=== PATIENT | female | born 1990 | race Caucasian/White ===

== ENCOUNTER 2018-01-09 10:24 | Inpatient (IN) | payer BC, OTHER ==
[2018-01-09] MEDS ORDERED: METHYLERGONOVINE 0.2 MG/ML 1 ML AMP IM PRN (12:17)
[2018-01-09] MEDS ORDERED: BUTORPHANOL 1 MG/ML 1 ML VIAL IV PRN (12:17)
[2018-01-09] MEDS ORDERED: LIDOCAINE 1% (PF) 10 MG/ML (30 ML SDV) SQ PRN (12:17)
[2018-01-09] MEDS ORDERED: TERBUTALINE 1 MG/ML VIAL SQ PRN (12:17)
[2018-01-09] MEDS ORDERED: CARBOPROST TROMETHAMINE 250 MCG/ML 1 ML AMP IM PRN (12:17)
[2018-01-09] MEDS ORDERED: OXYTOCIN 10 UNIT/ML 1 ML VIAL IM PRN (12:17)
[2018-01-09] MEDS: LACTATED RINGERS 1,000 ML IV SCH ×3 (12:30→19:27)
[2018-01-09] MEDS ORDERED: OXYTOCIN 20 UNITS/1000 ML NS 1,000 ML IV SCH ×2 (12:30→22:15)
[2018-01-09 12:45] LABS: Basophils % (A) 0 %; Eosinophils # (A) 0.2 k/uL (0-0.7); Eosinophils % (A) 2 %; HCT 35.1 % (34.0-46.0); HGB 11.5 gm/dL (11.4-16.0); Lymphocytes # (A) 1.3 k/uL (1.0-4.8); Lymphocytes % (A) 14 %; MCH 27.8 pg (25.0-35.0); MCHC 32.8 g/dL (31.0-37.0); MCV 84.7 fL (80.0-100.0); Mean Platelet Volume 7.3; Monocytes # (A) 0.3 k/uL (0-1.0); Monocytes % (A) 3 %; Neutrophils # (A) 7.2 k/uL (1.3-7.7); Neutrophils % (A) 80 %; Platelet Count 254 k/uL (150-450); RBC 4.15 m/uL (3.80-5.40); RDW 13.8 % (11.5-15.5); WBC 9.1 k/uL (3.8-10.6)
--- NOTE | 2018-01-09 13:11 | P.HPOB ---
History of Present Illness H&P Date: 01/09/18 The patient is a 27-year-old 1 para 0 admitted at 39-2/7 weeks as established by last menstrual period and confirmed by 10 week ultrasound. She is admitted in early active labor with all signs reassuring having made progress from 3 cm of dilation to 4 cm of dilation over the course of 1-2 hours. Her has been entirely uncomplicated and group B strep status is negative. Obstetrical history: 1 para 0 with current statistics as listed above. EDC of 01/15/2018 was established by last menstrual period and confirmed by 10 week ultrasound. Laboratory workup demonstrated blood type of A + with a negative antibody screen. Rubella status is immune. The remainder of laboratory workup was within normal limits. One hour Glucola is normal and group B strep status is negative. Gynecologic history: Unremarkable with no history of any infections to include STDs. Review of Systems Review of systems is confined to history of present illness. Past Medical History Past Medical History: No Reported History History of Any Multi-Drug Resistant Organisms: MRSA Date of last positivie culture/infection: 2013 MDRO Source:: upper lip Past Surgical History: No Surgical Hx Reported Past Anesthesia/Blood Transfusion Reactions: No Reported Reaction Past Psychological History: Anxiety, Depression Smoking Status: Former smoker Past Alcohol Use History: Occasional Past Drug Use History: None Reported - Past Family History Mother Family Medical History: No Reported History Medications and Allergies Home Medications Medication Instructions Recorded Confirmed Type Pnv,Calcium 72/Iron/Folic Acid 1 each PO DAILY 01/09/18 01/09/18 History [ Plus Tablet] Allergies Allergy/AdvReac Type Severity Reaction Status Date / Time No Known Allergies Allergy Verified 01/09/18 10:34 Exam Vital Signs Temp Pulse Resp BP 01/09/18 12:16 97.0 F L 82 16 108/56 01/09/18 12:05 97.0 F L 82 16 108/56 Intake and Output 01/08/18 01/09/18 01/09/18 22:59 06:59 14:59 Other: Weight 85.275 kg In general, this is a well-developed, well-nourished white female in no acute distress. Her heart has a regular rhythm and rate without murmur. Her lungs are clear to auscultation bilaterally in all [place]. Her abdomen is gravid, nondistended, has normal active bowel sounds, is soft, nontender, and without any palpable masses aside from uterine fundus. Her extremities are without any cyanosis, clubbing, or edema and are nontender to palpation bilaterally. Digital cervical examination on straights her cervix to be 4-5 cm dilated, 90% effaced, the vertex in presentation at -1-2 station. Artificial rupture of membranes is carried out demonstrating moderately meconium-stained fluid. Results Result Diagrams: 01/09/18 12:25 Assessment and Plan (1) Active labor at term Current Visit: Yes Status: Acute Code(s): XTZ5784 - SNOMED Code(s): 47264300 Plan: The patient will have close maternal and surveillance and expectant management will be practiced. She is a good candidate for either IV or epidural anesthesia if she so chooses. She is requesting as much nonintervention as possible.
[2018-01-09] MEDS ORDERED: ROPIVACAINE 100 MG, fentaNYL (PF) 200 MCG in SODIUM CHLORIDE 0.9% 76 ML EPIDURAL ONE (19:13)
[2018-01-09] MEDS ORDERED: CITRIC ACID-SODIUM CITRATE 15 ML CUP PO ONE (21:15)
[2018-01-09] MEDS ORDERED: ONDANSETRON 4 MG/2 ML VIAL ONE (21:26)
[2018-01-09] MEDS ORDERED: KETOROLAC 30 MG/ML 1 ML VIAL ONE (21:26)
[2018-01-09] MEDS ORDERED: MORPHINE SULFATE (PF) 0.3 MG/0.3 ML SYR ONE (21:26)
[2018-01-09] MEDS ORDERED: CHLOROPROCAINE 3% 30 MG/ML 20 ML VIAL ONE (21:26)
[2018-01-09] MEDS ORDERED: ceFAZolin IN SWFI 2 GM/20 ML SYRINGE IVP ONE (21:30)
[2018-01-09] MEDS ORDERED: NALOXONE 0.4 MG/ML 1 ML VIAL IV PRN ×2 (21:46→22:07)
[2018-01-09] MEDS ORDERED: MORPHINE SULFATE 4 MG/ML SYRINGE IVP PRN (21:46)
[2018-01-09] MEDS ORDERED: ONDANSETRON 4 MG/2 ML VIAL IVP PRN ×2 (21:46→22:07)
[2018-01-09] MEDS ORDERED: diphenhydrAMINE 50 MG/ML 1 ML VIAL IVP PRN ×3 (21:46→22:07)
[2018-01-09] MEDS ORDERED: ACETAMINOPHEN TAB 325 MG TAB PO PRN (22:07)
[2018-01-09] MEDS ORDERED: diphenhydrAMINE 25 MG CAP PO PRN (22:07)
[2018-01-09] MEDS ORDERED: METOCLOPRAMIDE 5 MG/ML 2 ML VIAL IVP PRN (22:07)
[2018-01-09] MEDS ORDERED: LANOLIN CREAM 5 GM TUBE TOPICAL PRN (22:07)
[2018-01-09] MEDS ORDERED: ZOLPIDEM 5 MG TAB PO PRN (22:07)
[2018-01-09] MEDS ORDERED: diphenhydrAMINE 50 MG CAP PO PRN (22:07)
[2018-01-09] MEDS ORDERED: ACETAMINOPHEN IV (For NPO) 1,000 MG in EMPTY BAG 1 BAG IVPB ONE (22:07)
--- NOTE | 2018-01-09 22:13 | P.OP ---
Date of Procedure: 01/09/18 Preoperative Diagnosis: IUP at 39-0/7 weeks, arrest of first stage of labor, meconium-stained fluid Postoperative Diagnosis: Same Procedure(s) Performed: Primary low transverse section Anesthesia: epidural Surgeon: Giana Abdullahi Bulk Cooler Installer #1: Peter Bonner Estimated Blood Loss (ml): 500 IV fluids (ml): 800 Urine output (ml): 300 Pathology: other (Placenta) Condition: stable Disposition: observation Indications for Procedure: Arrest of first stage of labor, meconium-stained fluid, category 2 heart tones Operative Findings: Normal uterus tubes and ovaries were appreciated Description of Procedure: The patient was prepped and draped in the usual fashion after epidural anesthesia was administered by anesthesia. A Pfannenstiel incision was made and extended of the abdominal cavity without difficulty. The bladder peritoneum was elevated and incised and reflected distally. A 2 cm incision was made in the transverse plane of the lower uterine segment to enter the uterus at which time clear fluid was noted. The incision was extended in both directions using the bandage scissors. The head was encountered within the field and delivered up and through the incision where the nose and mouth were thoroughly suctioned. Remainder of the was delivered onto the surgical field where the cord was doubly clamped, cut, and the was passed for resuscitative measures with weight and Apgars as noted above. A segment of cord was then doubly clamped, cut, and set aside should cord gases become necessary. The placenta was delivered manually, intact, and was grossly normal with a grossly normal three-vessel cord. The uterus was exteriorized and the interior cavity of the uterus swept of any remaining placental and membranous fragments with a laparotomy sponge. The margins of the incision were grasped with Bhat clamps and the incision closed in 2 layers. First layer was a running locking layer of 0 vicryl from margin to margin followed by a second layer of imbricating 0 vicryl from margin to margin. Any small points of bleeding were then made hemostatic with the Bovie. Once hemostasis was achieved, the posterior cul-de-sac was suctioned with a guard and the uterine and ovarian findings are as noted above. The uterus was replaced within the abdominal cavity and the gutters swept of any remaining blood fluid or clot. The incision was again reexamined and hemostasis was noted to be excellent. Any small point of bleeding were made hemostatic with the Bovie. Once hemostasis was achieved the parietal peritoneum was loosely reapproximated. The layer of muscles were examined and made hemostatic with the Bovie. Attention was then turned to the fascia which was closed with 2 running stitches of 0 Vicryl proceeding from the lateral margins to the midpoint. The subcutaneous tissues were irrigated, made hemostatic with the Bovie, and reapproximated with a running stitch of 30 vicryl. The skin was reapproximated with regular 4-0 vicryl. Estimated blood loss for the case was approximately 500 mL. All sponge instrument and needle counts are correct. There were no complications. The patient tolerated the procedure well and proceeded to the recovery room in stable condition. Both mother and are resting comfortably in recovery. girl 5-10 @ 2142, apgars of 9-9 at 1 and 5 mins respectively
[2018-01-10] MEDS: LACTATED RINGERS 1,000 ML IV SCH ×4 (01:07→22:54)
[2018-01-10] MEDS ORDERED: IBUPROFEN IV 800 MG in SODIUM CHLORIDE 0.9% 250 ML IV ONE (02:50)
[2018-01-10 06:57] LABS: Basophils % (A) 0 %; Eosinophils # (A) 0.1 k/uL (0-0.7); Eosinophils % (A) 0 %; HCT 26.4 % (34.0-46.0); Lymphocytes # (A) 1.8 k/uL (1.0-4.8); Lymphocytes % (A) 16 %; MCH 28.3 pg (25.0-35.0); MCHC 32.6 g/dL (31.0-37.0); MCV 86.9 fL (80.0-100.0); Mean Platelet Volume 8.6; Monocytes # (A) 0.5 k/uL (0-1.0); Monocytes % (A) 4 %; Neutrophils # (A) 8.5 k/uL (1.3-7.7); Neutrophils % (A) 78 %; Platelet Count 195 k/uL (150-450); RBC 3.04 m/uL (3.80-5.40); WBC 10.8 k/uL (3.8-10.6)
[2018-01-10 06:58] LABS: HGB 8.6 gm/dL (11.4-16.0)
--- NOTE | 2018-01-10 07:15 | P.PN ---
Progress Note - Text Date: 01-10-18Time: 712 The patient is status post section Vital signs stable VAS: 0-10 Patient has no complaints of pain. The patient incurred some minimal itching yesterday, this itching is now subsiding. Pain meds to be managed by service.
--- NOTE | 2018-01-10 08:33 | P.PNOBGPC ---
Subjective - Subjective Patient reports: Reports appetite normal, Reports voiding normally, Reports pain well controlled, Reports ambulating normally : doing well Objective - Vital Signs Latest vital signs: Vital Signs Temp Pulse Resp BP Pulse Ox 01/10/18 07:51 97.8 F 71 18 01/10/18 07:49 97.8 F 71 18 119/60 01/10/18 06:00 18 97 01/10/18 04:00 97.9 F 74 16 105/56 100 01/10/18 02:46 98 01/10/18 02:00 16 01/10/18 00:46 14 01/10/18 00:10 97.1 F L 68 14 105/60 100 01/09/18 23:40 96.7 F L 57 L 16 118/58 100 01/09/18 23:10 60 16 116/56 100 01/09/18 22:55 97.5 F L 58 L 16 125/60 100 01/09/18 22:40 61 16 117/64 100 01/09/18 22:25 71 16 116/57 97 01/09/18 22:10 97.1 F L 61 16 119/82 98 01/09/18 12:16 97.0 F L 82 16 108/56 01/09/18 12:05 97.0 F L 82 16 108/56 Intake and Output 01/09/18 01/10/18 01/10/18 22:59 06:59 14:59 Intake Total 2116.1 300 Output Total 1300 1150 Balance 816.1 -850 Intake: IV 800 Intake, IV Titration 1016.1 Amount Lactated Ringers 1,000 ml 1000 @ 125 mls/hr IV .Q8H DEANGELO Rx#:[id number] Oxytocin 20 Units/1000 ml 16.1 Ns 1,000 ml @ 1 MILLIUNIT/MIN 3 mls/hr IV .Q24H DEANGELO Rx#:[id number] Oral 300 300 Output: Urine 300 650 Uretheral (Lerner) 200 Emesis 500 Estimated Blood Loss 500 500 Other: # Voids 1 Weight 85.275 kg - Exam Extremities: Present: normal Abdomen: Present: normal appearance, soft. Absent: distention, tenderness Incision: Present: normal, dry, intact Uterus: Present: normal, firm (The fundus as tonic and nontender at the umbilicus.) - Labs Labs: Abnormal Lab Results - Last 24 Hours (Table) 01/10/18 Range/Units 06:43 WBC 10.8 H (3.8-10.6) k/uL RBC 3.04 L (3.80-5.40) m/uL Hgb 8.6 L D (11.4-16.0) gm/dL Hct 26.4 L (34.0-46.0) % Neutrophils # 8.5 H (1.3-7.7) k/uL Assessment and Plan (1) Active labor at term Current Visit: Yes Status: Acute Code(s): [id number] - SNOMED Code(s): 14309340 (2) S/P section Current Visit: Yes Status: Acute Code(s): Z98.891 - HISTORY OF UTERINE SCAR FROM PREVIOUS SURGERY SNOMED Code(s): 706871551 Plan: Continue routine postoperative and care. The patient is doing remarkably well for 12 hours status post section. I have encouraged her to continue to ambulate. She may be a candidate for discharge home tomorrow morning if she continues to do well.
[2018-01-10] MEDS: SENNOSIDES-DOCUSATE SODIUM 1 EACH TAB PO SCH ×2 (08:47→22:51)
[2018-01-10] MEDS ORDERED: PRENATAL VIT-IRON-FOLIC ACID 1 EACH CAP PO SCH (09:00)
[2018-01-10] MEDS: IBUPROFEN 600 MG TAB PO PRN (18:23)
[2018-01-10 22:48] VITALS: RESP 16
[2018-01-11] MEDS: IBUPROFEN 600 MG TAB PO PRN (06:53)
[2018-01-11] MEDS: SENNOSIDES-DOCUSATE SODIUM 1 EACH TAB PO SCH (08:24)
[2018-01-11 08:27] VITALS: BP 121/74; PULSE 86; TEMP 98.4
--- NOTE | 2018-01-11 09:47 | P.DS ---
Providers Date of admission: 01/09/18 11:48 Expected date of discharge: 01/11/18 Attending physician: Eduardo Vega - Discharge Diagnosis(es) (1) Active labor at term Current Visit: Yes Status: Acute (2) S/P section Current Visit: Yes Status: Acute Hospital Course: The patient is a 27-year-old 1 para 0 admitted at 39-2/7 weeks by good dating parameters. She is admitted in early active labor with all signs reassuring. Her was uncomplicated and group B strep status is negative. On labor and delivery, she had artificial rupture of membranes carried out demonstrating moderate meconium-stained fluid. She made progress only to approximately 5 cm of dilation where she arrested dilation for over 5-6 hours. She was taken the operating room where she was delivered by primary low- transverse section of a viable 5 lbs. 10 oz. baby girl with Apgars of 9 at 1 minute and 9 at 5 minutes. Her postoperative course was entirely unremarkable with vital signs remaining stable and her temperature was afebrile throughout. She was deemed stable for discharge on postoperative day #2 was discharged home to follow-up in the office in 2 weeks for an incision check and 6 weeks routinely. Discharge instructions included calling for any significantly increased bleeding or foul-smelling lochia, significantly increased fever abdominal pain, perineal complaints, breast complaints, incisional complaints, or anything else that concerned her. She was additionally instructed to do no heavy lifting over the next 4-6 weeks and to abstain from anything in the vagina for at least 6 weeks to include intercourse. She was last instructed to do no driving until off all of all pain medications or 2 weeks' time, whichever came first. She understood her instructions and agrees to follow up as noted above. Discharge medications included continued vitamins as she has opted to breast-feed and her pain is a well controlled with [id number] analgesic pain medications. Maternal blood type is A+ and rubella status is immune. Discharge hemoglobin and hematocrit were 8.6 and 26.4 respectively. As result she was counseled to take iron supplementation 325 mg daily for the next month or so. Procedures: #1. Artificial rupture of membranes #2. Pitocin augmentation #3. Epidural analgesia #4. Primary low-transverse section Patient Condition at Discharge: Good Plan - Discharge Summary New Discharge Prescriptions: No Action Pnv,Calcium 72/Iron/Folic Acid [ Plus Tablet] 1 each PO DAILY Discharge Medication List Pnv,Calcium 72/Iron/Folic Acid [ Plus Tablet] 1 each PO DAILY 01/09/18 [ History] Follow up Appointment(s)/Referral(s): Eduardo Vega MD [STAFF PHYSICIAN] - 2 Weeks Discharge Disposition: HOME SELF-CARE
--- NOTE | 2018-01-12 12:15 | P.MSEPDOC ---
Presenting Problems - Arrival Data Date of Arrival on Unit: 01/09/18 Time of Arrival on Unit: 12:05 Mode of Transport: Bed - Complaint OB-Reason for Admission/Chief Complaint: Possible Onset of Labor Medical History - Information : 1 Para: 0 Term: 0 : 0 Abortions: Spontaneous or Elective: 0 Number of Living Children: 0 - Gestational Age Gestational Age by MELLISSA (wks/days): 39 Weeks and 1 Days - History Complications: Smoker Review of Systems - Review of Systems Constitutional: No problems Breast: No problems ENT: No problems Cardiovascular: No problems Respiratory: No problems Gastrointestinal: No problems Genitourinary: No problems Musculoskeletal: No problems Neurological: No problems Skin: No problems Vital Signs - Temperature Temperature: 98.4 F Temperature Source: Oral - Pulse Right Pulse Rate: 86 Pulse Assessment Method: Automatic Cuff - Respirations Respiratory Rate: 16 Oxygen Delivery Method: Room Air - Blood Pressure Right Arm Blood Pressure: 121/74 Blood Pressure Mean: 89 Blood Pressure Source: Automatic Cuff Medical Screen Scoring (Pre) - Cervical Exam Dilation: 4-7 cm = 2 Effacement: More than 50% = 2 Membranes: Intact - Uterine Contractions Frequency: > or = 36 weeks =2 Duration: > 40 seconds = 2 Intensity: N/A - Maternal Vital Signs Maternal Temperature: N/A Maternal Blood Pressure: N/A Signs of Preeclampsia: N/A Maternal Respirations: N/A - Total Score Total Score (Pre): 8 - Level of Risk Level of Risk: Medium (6-9) Physician Notification (Pre) - Physician Notified Physician Notified Date: 01/09/18 Physician Notified Time: 12:05 Physician/Practitioner Notifed:: Dr Vega - Notification Comment Comment: reported on pts c/o cntrx since 2029, about every 5 minutes. reported on no bleeding or leaking, fhts reactive, cntrx pattern irregular. reported on SVE on admission to tr and then after 1 hour. orders to admit, start IV, stadol if needed. will be over on lunch to see pt Disposition - Disposition OB Disposition: Admit Transferred to:: st 11 Discharge Date: 01/11/18 Discharge Time: 10:47 I agree with the RN Medical Screening Exam: Yes Risk & Benefit of care provided described in d/c instruction: Yes Diagnosis: ENCOUNTER FOR FULL-TERM UNCOMPLICATED DELIVERY
== END 2018-01-11 10:48 | disposition home or self-care (01) | DRG 766 ==
LOC: FBPOP 10:24 → 4FBP 11:48
PROVIDERS: ADMIT Obstetrics & Gynecology; ATTEND Obstetrics & Gynecology
PROC: 10907ZC Drainage of Amniotic Fluid, Therapeutic from Products of Conception, Via Natural or Artificial Opening (ICD-10-PCS; principal; 2018-01-09 21:42)
PROC: 10D00Z1 Extraction of Products of Conception, Low, Open Approach (ICD-10-PCS; principal; 2018-01-09 21:42)
PROC: 00HU33Z Insertion of Infusion Device into Spinal Canal, Percutaneous Approach (ICD-10-PCS; principal; 2018-01-09 21:42)
PROC: 3E0R3NZ Introduction of Analgesics, Hypnotics, Sedatives into Spinal Canal, Percutaneous Approach (ICD-10-PCS; principal; 2018-01-09 21:42)
DX: O77.0 Labor and delivery complicated by meconium in amniotic fluid (principal); O62.0 Primary inadequate contractions; Z37.0 Single live birth; Z3A.39 39 weeks gestation of pregnancy; Z87.891 Personal history of nicotine dependence; Z86.14 Personal history of Methicillin resistant Staphylococcus aureus infection
CPT/HCPCS: 59025; 85025; 99213

== ENCOUNTER 2023-11-18 00:04 | Emergency (ER) | payer BC, OTHER ==
[2023-11-18 00:14] VITALS: TEMP 98.3
--- NOTE | 2023-11-18 00:51 | XR ---
EXAMINATION TYPE: XR knee complete RT DATE OF EXAM: 11/18/2023 CLINICAL HISTORY: Dislocation TECHNIQUE: Three views of the right knee are obtained. COMPARISON: None. FINDINGS: There is no acute fracture/dislocation evident in the right knee. The tri-compartment félix nt spaces appear within normal limits. The overlying soft tissue appears unremarkable. IMPRESSION: There is no acute fracture or dislocation in the right knee.
--- NOTE | 2023-11-18 01:46 | ED ---
Lower Extremity Injury HPI - General Chief Complaint: Extremity Injury, Lower Stated Complaint: Dislocated Knee Time Seen by Provider: 11/18/23 00:18 Source: patient Mode of arrival: ambulatory Limitations: no limitations - History of Present Illness Initial Comments: 33-year-old female presenting with chief complaint of right knee pain. Patient believes the knee is dislocated. She states that in the past she has felt a sensation as if her knee has been dislocated and she has been able to straighten it and "pop it back into place". Patient clarifies that her knee Has never dislocated. She has no prior injury. Today while she was squatting down to tie a rope onto a boat she felt the shifting sensation. She tried to straighten her knee but is unable to fully straighten her knee. No numbness or tingling. - Related Data Home Medications Medication Instructions Recorded Confirmed Vit No.180/Iron/Folic 1 each PO DAILY 01/09/18 01/09/18 [ Plus Tablet] Allergies Allergy/AdvReac Type Severity Reaction Status Date / Time No Known Allergies Allergy Verified 11/18/23 00:09 Review of Systems ROS Statement: Those systems with pertinent positive or pertinent negative responses have been documented in the HPI. ROS Other: All systems not noted in ROS Statement are negative. Past Medical History Past Medical History: Thyroid Disorder History of Any Multi-Drug Resistant Organisms: MRSA Date of last positivie culture/infection: 2013 MDRO Source:: upper lip Past Surgical History: No Surgical Hx Reported Past Anesthesia/Blood Transfusion Reactions: No Reported Reaction Past Psychological History: Anxiety, Depression Smoking Status: Vaper Past Alcohol Use History: Occasional Past Drug Use History: Marijuana - Past Family History Mother Family Medical History: No Reported History General Exam Limitations: no limitations General appearance: alert, in no apparent distress Head exam: Present: atraumatic, normocephalic Eye exam: Present: normal appearance, EOMI Neck exam: Present: normal inspection Respiratory exam: Absent: respiratory distress Cardiovascular Exam: Present: regular rate Right Knee exam: Present: normal inspection, tenderness. Absent: full ROM, swelling Neurovascular tendon exam: Present: no vascular compromise Neurological exam: Present: alert, oriented X3 Psychiatric exam: Present: normal affect, normal mood Skin exam: Present: warm, dry, normal color Course Vital Signs 11/18/23 11/18/23 00:10 02:49 Temperature 98.3 F Pulse Rate 96 90 Respiratory 19 18 Rate Blood Pressure 111/88 110/80 O2 Sat by Pulse 98 97 Oximetry Medical Decision Making - Medical Decision Making Was pt. sent in by a medical professional or institution (, [facility]ULIANA, SENIOR FINANCIAL ACCOUNTANT, urgent care, hospital, or longterm...) When possible be specific @ -No Did you speak to anyone other than the patient for history (EMS, parent, family, police, friend...)? What history was obtained from this source @ -No Did you review nursing and triage notes (agree or disagree)? Why? @ -I reviewed and agree with nursing and triage notes Were old charts reviewed (outside hosp., previous admission, EMS record, old EKG, old radiological studies, urgent care reports/EKG's, longterm records)? Report findings @ -No old charts were reviewed Differential Diagnosis (chest pain, altered mental status, abdominal pain women, abdominal pain men, vaginal bleeding, weakness, fever, dyspnea, syncope, headache, dizziness, GI bleed, back pain, seizure, CVA, palpatations, mental health, musculoskeletal)? @ -Differential Musculoskeletal Muscular strain, contusion, ligament sprain, fracture, arthritis, septic arthritis, bursitis, cellulitis, muscle spasm, nerve compression, DVT, arterial occlusion, herpes zoster, electrolyte abnormality, tumor.... This is not meant to be in all inclusive list EKG interpreted by me (3pts min.). @ -As above X-rays interpreted by me (1pt min.). @ -X-ray shows no acute fracture or dislocation in the right knee CT interpreted by me (1pt min.). @ -None done U/S interpreted by me (1pt. min.). @ -None done What testing was considered but not performed or refused? (CT, X-rays, U/S, labs)? Why? @ -None What meds were considered but not given or refused? Why? @ -None Did you discuss the management of the patient with other professionals (professionals i.e. JULIANA Blue, SENIOR FINANCIAL ACCOUNTANT, lab, RT, psych nurse, high school social studies teacher, steam drier operator, teacher, compliance officer, caseworker intake)? Give summary @ -No Was smoking cessation discussed for >3mins.? @ -No Was critical care preformed (if so, how long)? @ -No Were there social determinants of health that impacted care today? How? (Homelessness, low income, unemployed, alcoholism, drug addiction, transportation, low edu. Level, literacy, decrease access to med. care, care home, rehab)? @ -No Was there de-escalation of care discussed even if they declined (Discuss DNR or withdrawal of care, Hospice)? DNR status @ -No What co-morbidities impacted this encounter? (DM, HTN, Smoking, COPD, CAD, Cancer, CVA, ARF, Chemo, Hep., AIDS, mental health diagnosis, sleep apnea, morbid obesity)? @ -None Was patient admitted / discharged? Hospital course, mention meds given and route, prescriptions, significant lab abnormalities, going to OR and other pertinent info. @ -33-year-old female present with chief complaint of right knee pain. Patient believes that she dislocated the knee. She has had similar incidents in the past, she feels a shift in her knee and she is able to straighten out her knee eventually. At this time she cannot fully straighten her knee without significant pain. She is neurovascularly intact. X-ray shows no fracture or dislocation. Symptoms sound most consistent with a meniscal tear. Patient is educated on today's findings. She is provided with crutches and instructed to follow-up with orthopedics. Discharged. Follow-up with PCP. Report back to ER with any new or worsening symptoms. Discussed return parameters and answered all questions. Patient conveyed verbal understanding and agreed to the plan. I discussed this case in detail with my attending Dr. Gary Undiagnosed new problem with uncertain prognosis? @ -No Drug Therapy requiring intensive monitoring for toxicity (Heparin, Nitro, Insulin, Cardizem)? @ -No Were any procedures done? @ -No Diagnosis/symptom? @ -Meniscal tear, knee injury Acute, or Chronic, or Acute on Chronic? @ -Acute Uncomplicated (without systemic symptoms) or Complicated (systemic symptoms)? @ -Uncomplicated Side effects of treatment? @ -No Exacerbation, Progression, or Severe Exacerbation? @ -No Poses a threat to life or bodily function? How? (Chest pain, [place], [place], pneumonia, PE, COPD, DKA, ARF, appy, cholecystitis, CVA, Diverticulitis, Homicidal, Suicidal, threat to staff... and all critical care pts) @ -No Disposition Clinical Impression: Injury of meniscus of knee Disposition: HOME SELF-CARE Condition: Good Instructions (If sedation given, give patient instructions): Knee Sprain (ED), Meniscus Tear (ED) Additional Instructions: Follow-up with orthopedics. Report back to ER with any new or worsening sympto ms. Rest, ice, compress, and elevate the knee. Is patient prescribed a controlled substance at d/c from ED?: No Referrals: Domingo Johnson MD [Primary Care Provider] - 1-2 days Shane Nichols MD [STAFF PHYSICIAN] - 1-2 days Time of Disposition: 02:33
[2023-11-18] MEDS: IBUPROFEN 600 MG TAB PO STA (02:04)
[2023-11-18] MEDS: CALCIUM CARBONATE 500 MG CHEWABLE PO STA (02:04)
[2023-11-18 02:50] VITALS: BP 110/80; PULSE 90; RESP 18
== END 2023-11-18 02:52 | disposition home or self-care (01) ==
LOC: EC 00:04
DX: S83.206A Unspecified tear of unspecified meniscus, current injury, right knee, initial encounter (principal); F17.290 Nicotine dependence, other tobacco product, uncomplicated; F12.90 Cannabis use, unspecified, uncomplicated; X58.XXXA Exposure to other specified factors, initial encounter
CPT/HCPCS: 99283

== ENCOUNTER 2024-03-14 01:14 | Emergency (ER) | payer OTHER ==
[2024-03-14 02:17] VITALS: RESP 18
[2024-03-14] MEDS: SODIUM CHLORIDE 0.9% 1,000 ML IV STA (02:21)
[2024-03-14] MEDS: ONDANSETRON 4 MG/2 ML VIAL IVP STA (02:22)
[2024-03-14] MEDS: MAG HYDROX/AL HYDROX/SIMETH 30 ML, HYOSCYAMINE ELIXIR 10 ML, LIDOCAINE VISCOUS 2% 10 ML PO STA (02:22)
[2024-03-14 02:38] LABS: Eosinophils % (A) 5 %; HCT 37.5 % (34.0-46.0); HGB 12.5 gm/dL (11.4-16.0); Lymphocytes % (A) 31 %; MCH 30.3 pg (25.0-35.0); MCHC 33.4 g/dL (31.0-37.0); MCV 90.9 fL (80.0-100.0); Mean Platelet Volume 7.5; Monocytes % (A) 6 %; Neutrophils % (A) 56 %; Platelet Count 250 k/uL (150-450); RBC 4.13 m/uL (3.80-5.40); RDW 12.1 % (11.5-15.5); WBC 8.3 k/uL (3.8-10.6)
[2024-03-14 02:39] LABS: Basophils # (A) 0.1 k/uL (0-0.2); Basophils % (A) 1 %; Eosinophils # (A) 0.4 k/uL (0-0.7); Lymphocytes # (A) 2.6 k/uL (1.0-4.8); Monocytes # (A) 0.5 k/uL (0-1.0); Neutrophils # (A) 4.6 k/uL (1.3-7.7)
[2024-03-14 02:45] LABS: ALT 13 U/L (4-34); AST 22 U/L (14-36); African American GFR (CKD) >90 (>60 ml/min/1.73 sqM); Albumin 4.2 g/dL (3.5-5.0); Alkaline Phosphatase 49 U/L (38-126); Anion Gap 9 mmol/L; Blood Urea Nitrogen 15 mg/dL (7-17); Calcium 9.2 mg/dL (8.4-10.2); Carbon Dioxide 25 mmol/L (22-30); Chloride 105 mmol/L (98-107); Glucose 95 mg/dL (74-99); Lipase 65 U/L (23-300); Non-African American GFR(CKD) >90 (>60 ml/min/1.73 sqM); Potassium 3.7 mmol/L (3.5-5.1); Sodium 139 mmol/L (137-145); Total Bilirubin 0.4 mg/dL (0.2-1.3); Total Protein 6.4 g/dL (6.3-8.2)
--- NOTE | 2024-03-14 02:51 | ED ---
Abdominal Pain HPI - General Chief Complaint: Abdominal Pain Stated Complaint: Abd Pain,[place] Time Seen by Provider: 03/14/24 01:34 Source: patient, RN notes reviewed Mode of arrival: ambulatory Limitations: no limitations - History of Present Illness Initial Comments: 33-year-old female presenting to the ER with chief complaint of epigastric pain x 5 days with nausea and vomiting. Describes the pain as a crampy, burning pain in the upper abdomen that is worse after meals. Pain does not radiate. Denies fever, chills, urinary symptoms. She has never had this before. Denies recent alcohol use. Denies previous abdominal surgeries. - Related Data Home Medications Medication Instructions Recorded Confirmed Vit No.180/Iron/Folic 1 each PO DAILY 01/09/18 01/09/18 [ Plus Tablet] Previous Rx's Medication Instructions Recorded Dicyclomine [Bentyl] 20 mg PO TID #30 tablet 03/14/24 Omeprazole [PriLOSEC] 20 mg PO AC-BRKFST #14 cap 03/14/24 Ondansetron [Zofran] 4 mg PO Q8HR PRN #10 tab 03/14/24 Allergies Allergy/AdvReac Type Severity Reaction Status Date / Time No Known Allergies Allergy Verified 03/14/24 01:21 Review of Systems ROS Statement: Those systems with pertinent positive or pertinent negative responses have been documented in the HPI. ROS Other: All systems not noted in ROS Statement are negative. Past Medical History Past Medical History: Thyroid Disorder History of Any Multi-Drug Resistant Organisms: MRSA Date of last positivie culture/infection: 2013 MDRO Source:: upper lip Past Surgical History: No Surgical Hx Reported Additional Past Surgical History / Comment(s): right knee problems. MRSA in her face with lancing Past Anesthesia/Blood Transfusion Reactions: No Reported Reaction Past Psychological History: Anxiety, Depression Smoking Status: Vaper Past Alcohol Use History: Occasional Past Drug Use History: Marijuana - Past Family History Mother Family Medical History: No Reported History General Exam Limitations: no limitations General appearance: alert, in no apparent distress Head exam: Present: atraumatic, normocephalic, normal inspection Respiratory exam: Present: normal lung sounds bilaterally. Absent: respiratory distress, wheezes, rales, rhonchi, stridor Cardiovascular Exam: Present: regular rate, normal rhythm, normal heart sounds. Absent: systolic murmur, diastolic murmur, rubs, gallop, clicks GI/Abdominal exam: Present: soft, normal bowel sounds. Absent: distended, tenderness, guarding, rebound, rigid Back exam: Absent: CVA tenderness (R), CVA tenderness (L) Neurological exam: Present: alert, oriented X3 Psychiatric exam: Present: normal affect, normal mood Skin exam: Present: warm, dry, intact, normal color. Absent: rash Course Vital Signs 03/14/24 03/14/24 01:21 02:15 Temperature 97.7 F Pulse Rate 75 75 Respiratory 22 18 Rate Blood Pressure 121/83 134/87 O2 Sat by Pulse 98 99 Oximetry Medical Decision Making - Medical Decision Making Was pt. sent in by a medical professional or institution ([facility], [facility], urgent care, hospital, or halfway...) When possible be specific @ -No Did you speak to anyone other than the patient for history (EMS, parent, family, police, friend...)? What history was obtained from this source @ -No Did you review nursing and triage notes (agree or disagree)? Why? @ -I reviewed and agree with nursing and triage notes Were old charts reviewed (outside hosp., previous admission, EMS record, old EKG, old radiological studies, urgent care reports/EKG's, halfway records)? Report findings @ -No old charts were reviewed Differential Diagnosis (chest pain, altered mental status, abdominal pain women, abdominal pain men, vaginal bleeding, weakness, fever, dyspnea, syncope, headache, dizziness, GI bleed, back pain, seizure, CVA, palpatations, mental health, musculoskeletal)? @ -Differential Abdominal Pain Women: Appendicitis, Cholecystitis, diverticulosis, ischemic bowel, pancreatitis, hepatitis, UTI, gastroenteritis, AAA, incarcerated hernia, bowel obstruction, constipation, inflammatory bowel, hepatitis, peptic ulcer disease, splenic infarction, perforated viscus, vulvitis, ovarian torsion, PID, kidney stone, placenta abruption, this is not meant to be an all-inclusive list EKG interpreted by me (3pts min.). @ -None X-rays interpreted by me (1pt min.). @ -None done CT interpreted by me (1pt min.). @ -None done U/S interpreted by me (1pt. min.). @ -None done What testing was considered but not performed or refused? (CT, X-rays, U/S, labs)? Why? @ -CT/ultrasound considered however deferred due to abdomen soft and nontender, lab work unremarkable What meds were considered but not given or refused? Why? @ -None Did you discuss the management of the patient with other professionals (deejay eng i.e. , PA, [facility], lab, RT, psych nurse, nephrology social worker, supervisor cleaning and annealing, teacher, chief executive officer, trimming caser)? Give summary @ -No Was smoking cessation discussed for >3mins.? @ -No Was critical care preformed (if so, how long)? @ -No Were there social determinants of health that impacted care today? How? (Homelessness, low income, unemployed, alcoholism, drug addiction, transportation, low edu. Level, literacy, decrease access to med. care, nursing home, rehab)? @ -No Was there de-escalation of care discussed even if they declined (Discuss DNR or withdrawal of care, Hospice)? DNR status @ -No What co-morbidities impacted this encounter? (DM, HTN, Smoking, COPD, CAD, Cancer, CVA, ARF, Chemo, Hep., AIDS, mental health diagnosis, sleep apnea, morbid obesity)? @ -None Was patient admitted / discharged? Hospital course, mention meds given and route, prescriptions, significant lab abnormalities, going to OR and other pertinent info. @ -Discharge. This is a 33-year-old female presenting for epigastric pain x 5 days with nausea/vomiting. Pain is worse with food intake. Vital signs are within normal limits. Abdomen is soft and nontender. Patient was given IV fluids, Zofran, Pepcid, and GI cocktail. Lab work including CBC, CMP, lipase, lactic acid unremarkable. Urinalysis unremarkable. Discussed negative findings with patient. Upon reevaluation, patient reports symptoms have improved. Imaging considered however deferred at this time. Supportive care discussed including Zofran, Bentyl, and omeprazole sent to pharmacy. Advised close follow-up with PCP, patient may need GI follow-up if symptoms persist. Strict return precautions discussed and patient is agreeable to plan. Case was discussed with my ED attending Dr. Narvaez. Patient stable at time of discharge. Undiagnosed new problem with uncertain prognosis? @ -No Drug Therapy requiring intensive monitoring for toxicity (Heparin, Nitro, Insulin, Cardizem)? @ -No Were any procedures done? @ -No Diagnosis/symptom? @ -Epigastric pain Acute, or Chronic, or Acute on Chronic? @ -Acute Uncomplicated (without systemic symptoms) or Complicated (systemic symptoms)? @ -Uncomplicated Side effects of treatment? @ -No Exacerbation, Progression, or Severe Exacerbation? @ -No Poses a threat to life or bodily function? How? (Chest pain, USA, VT, pneumonia, PE, COPD, DKA, ARF, appy, cholecystitis, CVA, Diverticulitis, Homicidal, S uicidal, threat to staff... and all critical care pts) @ -Not at this time - Lab Data Result diagrams: 03/14/24 01:35 03/14/24 01:35 Lab Results 03/14/24 03/14/24 03/14/24 Range/Units 01:35 01:35 01:35 WBC 8.3 (3.8-10.6) k/uL RBC 4.13 (3.80-5.40) m/uL Hgb 12.5 (11.4-16.0) gm/dL Hct 37.5 (34.0-46.0) % MCV 90.9 (80.0-100.0) fL MCH 30.3 (25.0-35.0) pg MCHC 33.4 (31.0-37.0) g/dL RDW 12.1 (11.5-15.5) % Plt Count 250 (150-450) k/uL MPV 7.5 Neutrophils % 56 % Lymphocytes % 31 % Monocytes % 6 % Eosinophils % 5 % Basophils % 1 % Neutrophils # 4.6 (1.3-7.7) k/uL Lymphocytes # 2.6 (1.0-4.8) k/uL Monocytes # 0.5 (0-1.0) k/uL Eosinophils # 0.4 (0-0.7) k/uL Basophils # 0.1 (0-0.2) k/uL Sodium 139 (137-145) mmol/L Potassium 3.7 (3.5-5.1) mmol/L Chloride 105 (98-107) mmol/L Carbon Dioxide 25 (22-30) mmol/L Anion Gap 9 mmol/L BUN 15 (7-17) mg/dL Creatinine 0.69 (0.52-1.04) mg/dL Est GFR (CKD-EPI)AfAm >90 (>60 ml/min/1.73 sqM) Est GFR (CKD-EPI)NonAf >90 (>60 ml/min/1.73 sqM) Glucose 95 (74-99) mg/dL Plasma Lactic Acid Lamin 0.9 (0.7-2.0) mmol/L Calcium 9.2 (8.4-10.2) mg/dL Total Bilirubin 0.4 (0.2-1.3) mg/dL AST 22 (14-36) U/L ALT 13 (4-34) U/L Alkaline Phosphatase 49 (38-126) U/L Total Protein 6.4 (6.3-8.2) g/dL Albumin 4.2 (3.5-5.0) g/dL Lipase 65 (23-300) U/L Urine Color Urine Appearance (Clear) Urine pH (5.0-8.0) Ur Specific [place] (1.001-1.035) Urine Protein (Negative) Urine Glucose (UA) (Negative) Urine Ketones (Negative) Urine Blood (Negative) Urine Nitrite (Negative) Urine Bilirubin (Negative) Urine Urobilinogen (<2.0) mg/dL Ur Leukocyte Esterase (Negative) Urine HCG, Qual (Not Detectd) 03/14/24 03/14/24 Range/Units 02:26 02:26 WBC (3.8-10.6) k/uL RBC (3.80-5.40) m/uL Hgb (11.4-16.0) gm/dL Hct (34.0-46.0) % MCV (80.0-100.0) fL MCH (25.0-35.0) pg MCHC (31.0-37.0) g/dL RDW (11.5-15.5) % Plt Count (150-450) k/uL MPV Neutrophils % % Lymphocytes % % Monocytes % % Eosinophils % % Basophils % % Neutrophils # (1.3-7.7) k/uL Lymphocytes # (1.0-4.8) k/uL Monocytes # (0-1.0) k/uL Eosinophils # (0-0.7) k/uL Basophils # (0-0.2) k/uL Sodium (137-145) mmol/L Potassium (3.5-5.1) mmol/L Chloride (98-107) mmol/L Carbon Dioxide (22-30) mmol/L Anion Gap mmol/L BUN (7-17) mg/dL Creatinine (0.52-1.04) mg/dL Est GFR (CKD-EPI)AfAm (>60 ml/min/1.73 sqM) Est GFR (CKD-EPI)NonAf (>60 ml/min/1.73 sqM) Glucose (74-99) mg/dL Plasma Lactic Acid Lamin (0.7-2.0) mmol/L Calcium (8.4-10.2) mg/dL Total Bilirubin (0.2-1.3) mg/dL AST (14-36) U/L ALT (4-34) U/L Alkaline Phosphatase (38-126) U/L Total Protein (6.3-8.2) g/dL Albumin (3.5-5.0) g/dL Lipase (23-300) U/L Urine Color Yellow Urine Appearance Clear (Clear) Urine pH 5.5 (5.0-8.0) Ur Specific [place] 1.031 (1.001-1.035) Urine Protein Trace H (Negative) Urine Glucose (UA) Negative (Negative) Urine Ketones Negative (Negative) Urine Blood Negative (Negative) Urine Nitrite Negative (Negative) Urine Bilirubin Negative (Negative) Urine Urobilinogen 2.0 (<2.0) mg/dL Ur Leukocyte Esterase Negative (Negative) Urine HCG, Qual Not Detected (Not Detectd) Disposition Clinical Impression: Epigastric abdominal pain Disposition: HOME SELF-CARE Condition: Stable Instructions (If sedation given, give patient instructions): Epigastric Pain (ED) Additional Instructions: Take Zofran as needed for nausea, Bentyl as needed for abdominal cramping, and omeprazole daily before breakfast. Follow-up with PCP as discussed. Please return to the Emergency Department if symptoms worsen or any other concerns. Prescriptions: Dicyclomine [Bentyl] 20 mg PO TID #30 tablet Omeprazole [PriLOSEC] 20 mg PO AC-BRKFST #14 cap Ondansetron [Zofran] 4 mg PO Q8HR PRN #10 tab PRN Reason: Nausea Is patient prescribed a controlled substance at d/c from ED?: No Referrals: Domingo Johnson MD [Primary Care Provider] - 1-2 days Time of Disposition: 03:48
[2024-03-14 02:59] LABS: Appearance,Urine Clear (Clear); Bilirubin,Urine Negative (Negative); Blood,Urine Negative (Negative); Color,Urine Yellow; Glucose,Urine (UA) Negative (Negative); Ketones,Urine Negative (Negative); Leukocyte Esterase,Urine Negative (Negative); Nitrite,Urine Negative (Negative); PH, Urine 5.5 (5.0-8.0); Protein,Urine Trace (Negative); Specific Gravity,Urine 1.031 (1.001-1.035)
[2024-03-14] MEDS: FAMOTIDINE 20 MG/2 ML VIAL IV STA (03:01)
[2024-03-14 04:22] VITALS: BP 109/74; PULSE 60
[2024-03-14 04:26] VITALS: TEMP 98.6
== END 2024-03-14 04:23 | disposition home or self-care (01) ==
LOC: EC 01:14
CPT/HCPCS: 36415; 80053; 81003; 81025; 83605; 83690; 85025; 96361; 96374; 96375; 99284